=== PATIENT | male | born 1945 | race Caucasian/White ===

== ENCOUNTER 2018-05-11 20:25 | Outpatient (REF) | payer OTHER, SELFPAY ==
[2018-05-11 22:23] LABS: COMMENT (LAB VIEW ONLY) 146.66 mg/dL
== END 2018-05-11 20:45 ==
LOC: NCHCN 20:25
PROVIDERS: PCP Physician Assistant Medical; Referring Provider Physician Assistant Medical; Visit Provider Physician Assistant Medical
DX: E11.9 Type 2 diabetes mellitus without complications (principal)
CPT/HCPCS: 82043; 82570

== ENCOUNTER 2018-08-03 09:47 | Outpatient (REF) | payer OTHER, SELFPAY ==
[2018-08-03 21:17] LABS: Anion Gap 8.5 mmol/L (3-11); BUN 21 mg/dL (7-18); CO2 29.5 mmol/L (21.0-32.0); CREATININE 0.95 mg/dL (0.70-1.30); Calcium 9.2 mg/dL (8.5-10.1); Chloride 104 mmol/L (98-107); Cholesterol 154 mg/dL (50-200); Glucose 143 mg/dL (70-100); HDL Cholesterol 53 mg/dL (40-60); LDL CHOLESTEROL 90 mg/dL (<100); Potassium 4.5 mmol/L (3.5-5.1); Sodium 142 mmol/L (136-145); Triglyceride 70 mg/dL (30-150)
[2018-08-05 09:35] LABS: PSA, Screening 2.2 ng/ml (0-6.5)
== END 2018-08-03 10:07 ==
LOC: NCHCN 09:47
PROVIDERS: PCP Physician Assistant Medical; Visit Provider Physician Assistant Medical
DX: E11.9 Type 2 diabetes mellitus without complications (principal); I10 Essential (primary) hypertension; E78.5 Hyperlipidemia, unspecified; Z12.5 Encounter for screening for malignant neoplasm of prostate
CPT/HCPCS: 80048; 80061; 83721; 84153

== ENCOUNTER → 2019-07-26 09:29 | Outpatient (REF) | payer OTHER, SELFPAY ==
[2019-07-26 21:17] LABS: COMMENT (LAB VIEW ONLY) 105.59 mg/dL; Microalb ug/mg Crea 2.8 ug/mg Cr
[2019-07-26 21:20] LABS: Anion Gap 10.4 mmol/L (3-11); BUN 25 mg/dL (7-18); CO2 28.6 mmol/L (21.0-32.0); CREATININE 1.09 mg/dL (0.70-1.30); Calcium 8.8 mg/dL (8.5-10.1); Calculated LDL 101 mg/dL; Chloride 103 mmol/L (98-107); Cholesterol 165 mg/dL (<200); Glucose 138 mg/dL (74-106); HDL Cholesterol 49 mg/dL (40-60); Potassium 4.3 mmol/L (3.5-5.1); Sodium 142 mmol/L (136-145); Triglyceride 75 mg/dL (<150)
== END ==
LOC: NCHCN 09:29
PROVIDERS: PCP Physician Assistant Medical; Visit Provider Nurse Practitioner Family
DX: E78.5 Hyperlipidemia, unspecified (principal); I10 Essential (primary) hypertension
CPT/HCPCS: 80048; 80061; 82043; 82570

== ENCOUNTER 2020-06-27 09:40 | Outpatient (REF) | payer OTHER, SELFPAY ==
[2020-06-27 19:41] LABS: ALT 27 U/L (16-63); AST 15 U/L (15-37); Albumin 4.1 g/dL (3.4-5.0); Alkaline Phosphatase 42 U/L (46-116); Anion Gap 8.2 mmol/L (3-11); BUN 22 mg/dL (7-18); Bilirubin, Total 0.5 mg/dL (0.2-1.0); CO2 28.8 mmol/L (21.0-32.0); Calcium 8.8 mg/dL (8.5-10.1); Calculated LDL 75 mg/dL (<100); Chloride 104 mmol/L (98-107); Cholesterol 139 mg/dL (<200); Glucose 151 mg/dL (74-106); HDL Cholesterol 52 mg/dL (40-60); Potassium 4.7 mmol/L (3.5-5.1); Sodium 141 mmol/L (136-145); Total Protein 6.8 g/dL (6.4-8.2); Triglyceride 64 mg/dL (<150)
[2020-06-27 20:03] LABS: COMMENT (LAB VIEW ONLY) 136.14 mg/dL; Microalb ug/mg Crea 4.2 ug/mg Cr
== END 2020-06-27 10:00 ==
LOC: NCHCN 09:40
PROVIDERS: PCP Physician Assistant Medical; Visit Provider Physician Assistant
DX: E78.5 Hyperlipidemia, unspecified (principal)
CPT/HCPCS: 80053; 80061; 82043; 82570

== ENCOUNTER 2021-03-26 09:49 | Outpatient (REF) | payer OTHER, SELFPAY ==
[2021-03-26 21:24] LABS: Hemoglobin A1C 9.2 % (<5.7)
[2021-03-26 21:29] LABS: BUN 19 mg/dL (7-18); Chloride 104 mmol/L (98-107); Glucose 208 mg/dL (74-106); LDL CHOLESTEROL 106 mg/dL (<100); Potassium 4.4 mmol/L (3.5-5.1); Sodium 141 mmol/L (136-145)
[2021-03-26 21:33] LABS: COMMENT (LAB VIEW ONLY) 152.29 mg/dL; Microalb ug/mg Crea 5.1 ug/mg Cr
== END 2021-03-26 09:50 | disposition home or self-care (01) ==
LOC: NCHCN 09:49
PROVIDERS: PCP Physician Assistant Medical; Visit Provider Physician Assistant
DX: E11.9 Type 2 diabetes mellitus without complications (principal); E78.5 Hyperlipidemia, unspecified; I10 Essential (primary) hypertension
CPT/HCPCS: 80048; 83721; 82043; 82570; 83036

== ENCOUNTER → 2021-10-24 08:57 | Outpatient (BNVA) | payer MEDICARE, SELFPAY | PROVIDERS: PCP Physician Assistant Medical; Referring Provider Physician Assistant Medical; Visit Provider Physical Therapy Assistant | DX: Z12.11 Encounter for screening for malignant neoplasm of colon (principal); Z86.010 Personal history of colon polyps ==

== ENCOUNTER 2021-11-03 02:55 | Outpatient (CLI) | payer MEDICARE, SELFPAY ==
[2021-11-03 11:31] LABS: Source Nasal/Nares
[2021-11-03 16:14] LABS: COVID-19 PCR Negative (Negative)
== END 2021-11-03 02:56 | disposition home or self-care (01) ==
LOC: LBO 02:56
PROVIDERS: PCP Physician Assistant; Visit Provider Surgery
DX: Z20.822 Contact with and (suspected) exposure to COVID-19 (principal); Z01.818 Encounter for other preprocedural examination
CPT/HCPCS: 87635; U0005

== ENCOUNTER 2021-11-05 06:47 | Day surgery (SDC) | payer MEDICARE, SELFPAY ==
--- NOTE | 2021-11-05 06:27 | COLE_ITS ---
Colonoscopy Report Date of procedure: 11/05/21 Pre-op diagnosis general: Hx of polyps Procedure: Colonoscopy with polypectomy Surgeon: Kristina Barber Anesthesia Type: General:No Airway Estimated blood loss (mL): 3 Pathology: other (Ascending polyps x4, transverse polyp, proximal descending, distal descending, sigmoid polyps x2) Complications: None Disposition: same day Indications: The patient is here for Colonoscopy pre-op. His last screening was in 2017 and was remarkable for villous adenoma w/o dysplaisa, tubular adenoma and tubulovillous adenoma with high-grade dysplasia. This area was tattooed. He has no family history of colon cancer. He has not had any bowel habit changes. -Discussed colonoscopy bowel prep as well as the procedure. Discussed possible complications of the procedure to include bleeding, pain, perforation, missed small lesion/polyp, sore throat, aspiration and adverse reaction to the medications. Questions were answered to patient?s satisfaction. No guarantees were implied or given.? Prep: Miralax/Dulcolax Procedure Start Time: 08:19 Procedure End Time: 08:45 Retraction Time: 21 minutes Findings: Multiple polyps ranging from < 1 cm to 1 cm Mild ivy-diverticulosis Procedure Description: After informed consent was obtained the patient was taken to the procedure room and placed in a left decubitous position. Monitors were applied and a time out was done. The patients name, date of , procedure, allergies to medications and metal in their body was reviewed. The patient was then sedated. Once sedated and comfortable a rectal exam was done. External exam was normal. Internal exam revealed a normal sphincter tone and no palpable masses. The prostate [place] smooth. The scope was then introduced and retro-flexed. No internal hemorrhoids, polyps or masses were identified on retro-flexion. The scope was then advanced to the cecum without difficulty. The ileocecal vlave and appendiceal orifice were identified. The prep was adequate. The scope was then slowly retracted over 21 minutes back into the rectum. Polyps were removed with cold forceps in the ascending colon, transverse colon and sigmoid colon. Polyps were removed with a Hot snare in the descending colon x2. There was mild ivy- diverticulosis noted. The scope was removed and the patient was woken up and taken back to Same day surgery in stable condition. The patient tolerated the procedure well and there were no immediate complications. Follow up: The patient should follow up in 3-5 years unless they develop changes in bowel habits or other new gastrointestinal complaints.
--- NOTE | 2021-11-05 06:29 | W.PM.DSUDISC ---
Discharge Plan Disposition Patient Disposition: HOME Condition: Good Discharge Details Reason For Visit: Colonoscopy Attending Provider: Kristina Barber Primary Care Provider: Cristina Knight Home Meds and New Rx's Prescriptions: Continued aspirin [Aspir-81] 81 MG tablet,delayed release (DR/EC) 81 mg PO DAILY 0RF multivitamin [Daily Multi-Vitamin] 1 EACH tablet 1 ea PO DAILY 0RF lisinopril 5 mg tablet 5 mg PO DAILY 0RF amlodipine 5 mg tablet 5 mg PO DAILY 0RF atorvastatin 20 mg tablet 20 mg PO QHS 0RF valacyclovir 1,000 MG tablet 1,000 mg PO TID Qty: 21 0RF ascorbic acid-ascorbate sodium 500 MG wafer 500 mg PO PRN PRN0RF Discontinued polyethylene glycol 3350 17 gram/dose powder 238 g PO ONCE Qty: 238 0RF Rx Instructions: take per colonoscopy instructions bisacodyl [Dulcolax (bisacodyl)] 5 mg tablet,delayed release (DR/EC) 5 mg PO ONCE Qty: 4 0RF Rx Instructions: take per colonoscopy instructions Discharge Instructions Instructions: Diverticulosis (DC), Colorectal Polyps (DC) Additional Instructions: Findings: Multiple polyps diverticulosis Follow up: will depend on final diagnoses Please call if you develop: fevers >101.5 Nausea or Vomiting Abdominal pain that is not transient Rectal bleeding that is more then a tbsp A hard abdomen and inability to pass gas DAY SURGERY UNIT POST ENDOSCOPY INSTRUCTIONS Instructions for everyone who is given Anesthesia: For your safety, please do the following for the next 24 Hours: a. Do not drive or operate dangerous equipment b. Do not drink alcohol beverages or use any recreational drugs for the first 24 hours or while taking pain medications. The medications in your body may have a reaction that can be dangerous. c. Do not make any important decisions or sign any important papers 1. Generally there are no restrictions on your activity after a day or so has gone by, but you may feel a bit fatigued for a few days. 2. After you arrive home you may have a light meal and return to a normal diet as you can tolerate it without feeling sick to your stomach. 3. After surgery, you may feel pain or discomfort. This should be only transient, but if it persists please contact your doctor. 4. If there are any questions regarding the findings of your procedure, please feel free to contact your doctor. 6. If you are unable to contact your doctor with a problem, contact the hospital at [phone]. 7. Continue all your regular medications unless directed otherwise. I understand the above instructions and have no questions. Signature of Patient or Responsible Adult Escort Date/Time Name of Responsible Adult Escort Signature of Nurse Date/Time Activity:: Activity as Tolerated Diet:: high fiber Discharge Orders Discharge Orders: Discharge Order (Routine); Ordered 11/05/21 Ordered By: Kristina Barber
[2021-11-05 07:25] VITALS: BP 138/73; PULSE 75; RESP 16; TEMP 36.6; O2SAT 98
--- NOTE | 2021-11-05 07:33 | W.ANESPRE ---
General Info Date of Service Date Performed: 11/05/21 Height: 5 ft 8 in Weight: 76.2 kg Body Mass Index (BMI): 25.5 Surgical Procedure: Operation Date: 11/05/21 08:50 Proposed Procedure Side Surgeon derrick Barber MD Meds Allergies and Home Medications Allergies Allergy/AdvReac Type Severity Reaction Status Date / Time doxycycline AdvReac Intermediate NAUSEA; Unverified 11/05/21 07:22 HEADACHE Home Medication Medication Instructions Recorded aspirin 81 mg tablet,delayed 81 mg PO DAILY tab-cap 08/24/16 release (Aspir-) multivitamin (Daily Multi-Vitamin) 1 ea PO DAILY 08/24/16 ascorbic acid-ascorbate sodium 500 mg PO PRN PRN 09/22/16 (vitamin C) 500 mg oral wafer valacyclovir 1 gram tablet 1,000 mg PO TID #21 tab 06/25/17 amlodipine 5 mg tablet 5 mg PO DAILY 04/18/21 atorvastatin 20 mg tablet 20 mg PO QHS 04/18/21 lisinopril 5 mg tablet 5 mg PO DAILY 04/18/21 bisacodyl 5 mg tablet,delayed 5 mg PO ONCE #4 tab 10/24/21 release (Dulcolax (bisacodyl)) polyethylene glycol 3350 17 238 g PO ONCE #238 g 10/24/21 gram/dose oral powder Current Visit Medications: Current Medications Generic Name Dose Route Start Last Admin Trade Name Freq PRN Reason Stop Dose Admin Hyoscyamine Sulfate 0.125 mg 11/05/21 06:29 Hyoscyamine 0.125 Mg Sl/Oral/Chew SL DIRECTED PRN Ringer's Solution 1,000 mls @ 80 mls/hr 11/05/21 06:00 IV 12/04/21 23:59 [facility] IV Miscellaneous Supplies 1 each 11/05/21 06:00 Iv Access IV 12/04/21 23:59 DIRECTED FAYE Ondansetron HCl 4 mg 11/05/21 06:29 Ondansetron 4 Mg/2 Ml Vial IVP Q4H PRN PRN Nausea / Vomiting Sodium Chloride 0 ml 11/05/21 06:00 Normal Saline Flush 10 Ml Syr IV 12/04/21 23:59 PRN PRN Sodium Chloride 0 ml 11/05/21 06:00 Normal Saline 10 Ml Vial IJ 12/04/21 23:59 DIRECTED PRN Sterile Water 0 ml 11/05/21 06:00 Water,Injection,Sterile 10 Ml Vial IJ 12/04/21 23:59 DIRECTED PRN [facility] Medical History Medical History Diabetes mellitus type II, controlled Epididymitis, right Hyperlipidemia Hypertension Left inguinal pain Lumbar radiculopathy Prostatism Tubular adenoma of colon Tubulovillous adenoma Villous adenoma of colon Surgical History Surgical History (Updated 11/05/21 @ 07:22 by Domonique Durán) Appendectomy Colonoscopy - IV Sedation (09/22/16) fragments tubular adenoma, villous adenoma History of surgery on wrist bilateral breaks from fall of roof Tobacco Smoking/Tobacco Use Status: Never Alcohol Alcohol Intake: never Substance Use Substance use: Never Substance use type: does not use Vital Signs and Lab Results Vital Signs Most Recent Vital Signs in EMR: Most Recent Vital Signs Temp Pulse Resp BP Pulse Ox 36.6 C 75 16 138/73 98 11/05/21 07:25 11/05/21 07:25 11/05/21 07:25 11/05/21 07:25 11/05/21 07:25 Lab Results Blood Type / Crossmatch: No Data to Display Complete Blood Count: No Data to Display Complete Metabolic Panel: No Data to Display Liver Function Panel: No Data to Display Coagulation Panel: No Data to Display Cardiac Panel: No Data to Display Arterial Blood Gas: No Data to Display Venous Blood Gas: No Data to Display Pancreas Panel: No Data to Display Thyroid Panel: No Data to Display Infectious Disease: Coronavirus (COVID-19)(PCR) Negative (Negative) 11/03/21 09:11 11/03/21 Coronavirus 2019 Source Nasal/Nares 11/03/21 09:11 11/03/21 Blood Cultures: No Data to Display Toxicology Panel: No Data to Display Anesthesia Assessment and Plan Anesthesia History Personal History: No History of Anesthesia Complications Family History: No Family History of Anesthesia Complications Exercise Tolerance Exercise Tolerance: Metabolic Equivalents>4 Cardiac & Pulmonary Exam Cardiac Exam: Normal S1/S2 Heart Sounds Pulmonary Exam: Clear Bilateral Breath Sounds Implantable Cardiac Device Does patient have a Pacemaker or an ICD?: No Airway Exam Known Difficult Airway: No Mallampati Class: 2 Mouth Opening: Normal (> 3cm) Thyromental Distance: Greater than 3 cm Neck Range of Motion: Full ROM Neck Circumference: Normal Teeth Condition: Normal Dentition ASA Classification ASA Score: ASA 2 Emergency Case?: No NPO Status NPO Status: NPO Clears >2 hours, Solids >8 hours Anesthesia Plan Resuscitation Status: Full Code Anesthesia Technique: General Anesthesia Airway Planned: Natural Airway Monitors Used: Standard Monitors Preoperative Comments:: Diet controlled DM, no medications.
[2021-11-05] MEDS: Lactated Ringers 1,000 ML 80 ML IV (07:35)
[2021-11-05 07:42] VITALS: BMI 25.5
--- NOTE | 2021-11-05 08:24 | BOWEL_PTH ---
PATIENT: Ruiz Sue LOC: [facility] U#:[id number] AGE/SX: 76/M ROOM: RE11/05/[address]: Kristina Barber MD : [id number] BED: DIS: 11/05/2021 SPEC #: [id number] RECD: 11/05/21 12:38 STATUS: SABINO REQ #: [id number] DWIGHT: 11/05/21 08:[address]: Kristina Barber DEPT: Surgical Specimen RECD BY: Cris Lehamn ENTERED: 11/05/21 12:40 SP TYPE: Bowel OTHR DR: Cristina Knight Tissues: 1 - BIOPSY BOWEL 2 - BIOPSY BOWEL 3 - BIOPSY BOWEL 4 - BIOPSY BOWEL 5 - BIOPSY BOWEL Procedures: GROSS AND MICRO LEVEL 4 Comments: [id number]
[2021-11-05 08:50] VITALS: BP 92/58; PULSE 68; RESP 16; TEMP 36.5; O2SAT 94
[2021-11-05 09:21] VITALS: BP 115/72; PULSE 62; RESP 16; TEMP 36.5; O2SAT 97
--- NOTE | 2021-11-05 09:21 | W.ANESPOSTOP ---
Postoperative Evaluation Date, Time and Location Date Performed: 11/05/21 Time Performed: 09:21 Patient Location: Day Surgery Unit Vital Signs Most Recent Imported Vital Signs: Most Recent Vital Signs Temp Pulse Resp BP Pulse Ox 36.5 C 68 16 92/58 L 94 11/05/21 08:50 11/05/21 08:50 11/05/21 08:50 11/05/21 08:50 11/05/21 08:50 Pain Score Most Recent Pain Score: Most Recent Pain Score Pain Level 0 11/05/21 08:50 Assessment Mental Status: Awake (Alert & Oriented to Patient Baseline) Airway and Respiratory Function: Patent airway with normal (patient baseline) respiratory exam Cardiovascular Function: Hemodynamically Stable Hydration Status: Adequately Hydrated Nausea & Vomiting: No Nausea or Vomiting Pain: Pt. Denies Any Pain Peripheral Nerve Block: Patient did not receive a nerve block
== END 2021-11-05 09:57 | disposition home or self-care (01) ==
LOC: SUR 06:48
PROVIDERS: PCP Physician Assistant; Visit Provider Surgery
PROC: 0DJD8ZZ Inspection of Lower Intestinal Tract, Via Natural or Artificial Opening Endoscopic (ICD-10-PCS; CPT 45378; principal; 2021-11-05 08:45)
DX: Z12.11 Encounter for screening for malignant neoplasm of colon (principal); K63.5 Polyp of colon; Z86.010 Personal history of colon polyps; K57.30 Diverticulosis of large intestine without perforation or abscess without bleeding
CPT/HCPCS: 45380; 45385; 88305

== ENCOUNTER 2021-12-23 19:43 | Outpatient (REF) | payer MEDICARE, SELFPAY ==
[2021-12-23 20:08] LABS: Anion Gap 7.5 mmol/L (3-11); BUN 25 mg/dL (7-18); CO2 28.5 mmol/L (21.0-32.0); Calcium 8.4 mg/dL (8.5-10.1); Chloride 105 mmol/L (98-107); Glucose 172 mg/dL (74-106); Potassium 4.5 mmol/L (3.5-5.1); Sodium 141 mmol/L (136-145)
== END 2021-12-23 19:44 | disposition home or self-care (01) ==
LOC: NCHCN 19:43
PROVIDERS: PCP Physician Assistant; Visit Provider Physician Assistant
DX: E11.9 Type 2 diabetes mellitus without complications (principal)
CPT/HCPCS: 80048

== ENCOUNTER 2023-01-28 09:24 | Outpatient (REF) | payer MEDICARE, SELFPAY ==
[2023-01-28 20:59] LABS: ALT 32 U/L (16-63); AST 17 U/L (15-37); Alkaline Phosphatase 60 U/L (46-116); Anion Gap 7.7 mmol/L (3-11); BUN 17 mg/dL (7-18); Bilirubin, Total 0.6 mg/dL (0.2-1.0); CO2 28.3 mmol/L (21.0-32.0); Calcium 8.9 mg/dL (8.5-10.1); Chloride 102 mmol/L (98-107); Glucose 370 mg/dL (74-106); Potassium 4.3 mmol/L (3.5-5.1); Sodium 138 mmol/L (136-145); Total Protein 7.2 g/dL (6.4-8.2)
== END 2023-01-28 09:25 | disposition home or self-care (01) ==
LOC: NCHCN 09:24
PROVIDERS: PCP Physician Assistant; Visit Provider Physician Assistant
DX: E11.65 Type 2 diabetes mellitus with hyperglycemia (principal)
CPT/HCPCS: 80053

== ENCOUNTER 2023-08-03 18:57 | Outpatient (REF) | payer MEDICARE, SELFPAY ==
[2023-08-03 19:16] LABS: Hemoglobin A1C 7.6 % (<5.7)
[2023-08-03 19:27] LABS: COMMENT (LAB VIEW ONLY) 54.94 mg/dL; Microalb ug/mg Crea 6.6 ug/mg Cr
== END 2023-08-03 18:58 | disposition home or self-care (01) ==
LOC: NCHCN 18:57
PROVIDERS: PCP Physician Assistant; Visit Provider Physician Assistant
DX: E11.65 Type 2 diabetes mellitus with hyperglycemia (principal)
CPT/HCPCS: 82043; 82570; 83036

== ENCOUNTER 2024-01-18 10:49 | Outpatient (REF) | payer MEDICARE, SELFPAY ==
[2024-01-18 19:02] LABS: ALT 31 U/L (16-63); AST 19 U/L (15-37); Alkaline Phosphatase 47 U/L (46-116); Anion Gap 6.3 mmol/L (3-11); BUN 18 mg/dL (7-18); Bilirubin, Total 0.8 mg/dL (0.2-1.0); CO2 31.7 mmol/L (21.0-32.0); Calcium 9.1 mg/dL (8.5-10.1); Calculated LDL 90 mg/dL (<100); Chloride 104 mmol/L (98-107); Cholesterol 161 mg/dL (<200); Estimated GFR 77.52 (mL/min/1.73m2); Glucose 208 mg/dL (74-106); HDL Cholesterol 58 mg/dL (40-60); Potassium 4.2 mmol/L (3.5-5.1); Sodium 142 mmol/L (136-145); Triglyceride 65 mg/dL (<150)
== END 2024-01-18 10:50 | disposition home or self-care (01) ==
LOC: NCHCN 10:49
PROVIDERS: PCP Physician Assistant; Visit Provider Physician Assistant
DX: E78.5 Hyperlipidemia, unspecified (principal)
CPT/HCPCS: 80053; 80061